=== PATIENT | female | born 1980 | race Hispanic/Latino ===

== ENCOUNTER 2018-12-08 09:39 | Day surgery (SDC) | payer BC ==
[2018-12-07 14:13] VITALS: BMI 51.5
[2018-12-08] MEDS ORDERED: Ondansetron PF 4 MG/2 ML Vial ONE (12:28)
[2018-12-08] MEDS ORDERED: PROPOFOL 200 MG/20 ML VIAL ONE (17:01)
--- NOTE | 2018-12-08 20:05 | OP ---
DATE OF PROCEDURE: 12/08/2018 PROCEDURES PERFORMED: Esophagogastroduodenoscopy and colonoscopy. PREPROCEDURE DIAGNOSES: 1. Prior history of Chanelle-en-Y gastric bypass. 2. Epigastric pain, improving on antacids. 3. Iron deficiency anemia, mild. 4. Epigastric pain, improving. POSTPROCEDURE DIAGNOSES: 1. Mild reflux esophagitis. 2. Anatomy for Chanelle-en-Y gastric bypass. 3. Small gastric erosion/ulcer just below the anastomosis, nonbleeding. No signs of perforation. 4. Otherwise normal postsurgical anatomy of the stomach, esophagus, and jejunum. 5. Normal colonoscopy. ANESTHESIA: TIVA. RECOMMENDATIONS: 1. Continue PPI therapy. 2. Multivitamin and iron daily. 3. PPI daily. 4. We will put her on Carafate for 6 weeks. 5. Reminder to avoid all NSAIDs, alcohol, and nicotine. 6. Consider colon cancer screening and colonoscopy in 10 years. Follow up in my office as needed. DESCRIPTION OF PROCEDURE: The patient was informed of the risks, benefits, and possible complications of endoscopy including perforation, reaction to medication, and aspiration. Informed consent was obtained. The patient was brought to the endoscopy suite, where she was sedated in a gradual fashion. Once she was comfortable, a bite block was placed inside the orifice. The endoscope was advanced through the esophagus, stomach, and the second and third portions of the duodenum, and slowly removed. There was good visualization of the mucosa. The esophagus was normal except for mild LA grade A reflux esophagitis. No strictures or erosions. The gastric pouch appeared normal in size. There was no evidence of stricturing or disease right at the anastomosis, but just below, there was a small anastomotic erosion. This was nonbleeding and very shallow. It was about 0.5 cm in size. The jejunum distal to this was normal. The scope was removed. The patient was returned to the room. The rectal exam was performed, which was normal. The endoscope was then advanced through the anal canal through the colon and cecum was identified by ileocecal valve and appendiceal orifice. The prep was very good. There was no polyps, masses, lesions, or other stigmata of bleeding. Retroflexed views in the rectum were normal. The scope was removed. Job ID: [id number]
== END 2018-12-08 13:00 | disposition home or self-care (01) ==
LOC: SDC 09:39
PROVIDERS: ATTEND Internal Medicine Gastroenterology
PROC: 0DJ08ZZ Inspection of Upper Intestinal Tract, Via Natural or Artificial Opening Endoscopic (ICD-10-PCS; principal; 2018-12-08)
PROC: 0DJD8ZZ Inspection of Lower Intestinal Tract, Via Natural or Artificial Opening Endoscopic (ICD-10-PCS; principal; 2018-12-08)
DX: D50.9 Iron deficiency anemia, unspecified (principal); K21.0 Gastro-esophageal reflux disease with esophagitis; K25.9 Gastric ulcer, unspecified as acute or chronic, without hemorrhage or perforation; E66.9 Obesity, unspecified; Z68.43 Body mass index [BMI] 50.0-59.9, adult; Z79.899 Other long term (current) drug therapy; Z98.84 Bariatric surgery status
CPT/HCPCS: J2405